=== PATIENT | male | born 1970 | race Two or more races ===

== ENCOUNTER 2024-11-22 19:09 | Emergency (ER) | payer MEDICAID ==
[~2024-11-22] VITALS: Ht 182.9 cm; Wt 94.7 kg
[2024-11-22 19:37] VITALS: BP 126/86; PULSE 80; RESP 20; TEMP 99.8; O2SAT 99
--- NOTE | 2024-11-22 19:51 | ED.PDOC ---
History of Present Illness(SKN HPI Comments PT HAD A SPIDER BITE IN RIGHT GROIN 2 WEEKS AGO, WENT TO PMD AND WAS GIVEN ANTIBIOTICS, STILL NOT HEALED. DENIES FEVER, CHILLS, NAUSEA, VOMITING, CHEST PAIN, SHORTNESS BREATH, DIFFICULTY BREATHING, DIARRHEA, OR RECENT TRAVEL. 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 11/22/24 Information Source: Patient Mode of Arrival: Ambulatory Past Medical History PAST MEDICAL HISTORY: Denies Surgical History: Denies all surgeries Family History Family History: Reviewed,noncontributory to illness Social History Smoker: Non-Smoker Alcohol: Denies ETOH Use Drugs: Denies Drug Use Constitutional: denies: chills, diaphoresis, fatigue, fever, malaise, sweats, weakness, others EENTM: denies: blurred vision, double vision, ear bleeding, ear discharge, ear drainage, ear pain, ear ringing, eye pain, eye redness, hearing loss, mouth pain, mouth swelling, nasal discharge, nose bleeding, nose congestion, nose pain, photophobia, tearing, throat pain, throat swelling, voice changes, others Respiratory: denies: cough, hemoptysis, orthopnea, SOB at rest, shortness of breath, SOB with excertion, stridor, wheezing, others Cardiovascular: denies: chest pain, dizzy spells, diaphoresis, Dyspnea on exertion, edema, irregular heart beat, left arm pain, lightheadedness, palpitations, PND, syncope, others Gastrointestinal: denies: abdomen distended, abdominal pain, blood streaked bowels, constipated, diarrhea, dysphagia, difficulty swallowing, hematemesis, melena, nausea, poor appetite, poor fluid intake, rectal bleeding, rectal pain, vomiting, others Genitourinary: denies: burning, dysuria, flank pain, frequency, hematuria, incontinence, penile discharge, penile sore, pain, testicle pain, testicle swelling, urgency, others Neurological: denies: dizziness, fainting, headache, left sided numbness, left sided weakness, numbness, paresthesia, pre-existing deficit, right sided numbness, right sided weakness, seizure, speech problems, tingling, tremors, weakness, others Musculoskeletal: denies: back pain, gout, joint pain, joint swelling, muscle pain, muscle stiffness, neck pain, others Integumetry: reports: wounds (RIGHT GROIN); denies: bruises, change in color, change in hair/nails, dryness, laceration, lesions, lumps, rash, others Allergic/Immunocompromised: denies: Difficulty Healing, Frequent Infections, Hives, Itching, others Hematologic/Lymphatic: denies: anemia, blood clots, easy bleeding, easy bruising, swollen glands, others Endocrine: denies: excessive hunger, excessive sweating, excessive thirst, excessive urination, flushing, intolerance to cold, intolerance to heat, unex plained weight gain, unexplained weight loss, others Psychiatric: denies: anxiety, bipolar disorder, depression, hopeless, panic disorder, schizophrenia, sleepless, suicidal, others Physical Exam General Appearance: No Apparent Distress, Normal HEENT: Pharynx Normal Neck: Full Range of Motion, Non-Tender Respiratory: Lungs Clear, No Respiratory Distress, Normal Breath Sounds Cardiovascular: No Murmur, Normal Peripheral Pulses, Regular Rate/Rhythm Breast Exam: Deferred Gastrointestinal: Non Tender, Soft Genitalia: Other (RIGHT GROIN ULCERATED LESION WITH LIGHT PURULENT DRAINAGE AND TRACE ERYTHEMIC WITHOUT STREAKING NO NOTED INGUINAL LYMPH NODES) Pelvic: Deferred Rectal: Deferred Extremities: Normal capillary refill, Normal inspection, Normal range of motion, Non-tender, No pedal edema Musculoskeletal : Apperance: Normal Neurologic: Alert, quality control associate II-XII nml as Tested, No Motor Deficits, Normal Affect, Normal Mood, No Sensory Deficits Cerebellar Function: Normal Reflexes: Normal Skin: Dry, Normal Color, Warm Lymphatic: No Adenopathy Was a procedure done? Was a procedure done?: No Differential Diagnosis (INTG) Differential Diagnosis: Cellulitis Differential Diagnosis: Herpes Zoster/Simplex, Impetigo, Other (CHANCROID) X-Ray, Labs, Meds, VS Vital Signs Date Time Temp Pulse Resp B/P (MAP) Pulse Ox O2 Delivery O2 Flow Rate FiO2 11/22/24 19:37 99.8 80 20 126/86 (99) 99 99.8 11/22/24 19:37 99.8 80 20 126/86 (99) 99 X-Ray, Labs, Meds, VS Comment LIKELY INFECTED INGROWN HERE POSSIBLY CHANCROID. ROCEPHIN 1 G IM IN THE A ZITHROMAX 1 G P.O.. SCRIPT DOXYCYCLINE.FOLLOW UP WITH [facility] SPRING MACHINE OPERATOR IN 1-2 DAYS. TAKE MEDICATIONS PRESCRIBED. RETURN TO ED FOR ANY NEW OR WORSENING SYMPTOMS. Time of 1ST Reevaluation: 20:00 Reevaluation 1ST: Improved Patient Education/Counseling: Diagnosis, Treatment, Prognosis, Need For Follow Up Family Education/Counseling: No Family Present Departure 1 Departure Time of Disposition: 20:02 Impression: Primary Impression: Groin ulcer Disposition: 01 HOME / SELF CARE / HOMELESS Condition: Stable e-Prescriptions Doxycycline Hyclate (DOXYCYCLINE HYCLATE) 100 Mg Tab 1 TAB PO BID for 10 Days, #20 TAB Prov: NINOSKA WALTER 11/22/24 Discharged With: Self Critical Care Note Critical Care Time?: No Stability Stability form required: NINOSKA Mcnally Nov 22, 2024 19:51
[2024-11-22] MEDS ORDERED: DOXY-286 PO (20:09)
[2024-11-22] MEDS: AZITHROMYCIN 250 MG TAB PO ONE (20:20)
[2024-11-22] MEDS: cefTRIAXone SOD 1,000 MG VL IM ONE (20:33)
== END 2024-11-22 20:46 | disposition home or self-care (01) ==
LOC: ER 19:09
DX: S30.861D Insect bite (nonvenomous) of abdominal wall, subsequent encounter (principal); L98.499 Non-pressure chronic ulcer of skin of other sites with unspecified severity; W57.XXXD Bitten or stung by nonvenomous insect and other nonvenomous arthropods, subsequent encounter
CPT/HCPCS: 96372; 99283; J0696